=== PATIENT | male | born 1970 | race Caucasian/White ===

== ENCOUNTER 2025-03-13 10:47 | Emergency (ER) | payer OTHER, SELFPAY ==
[2025-03-13 11:03] VITALS: BP 120/72
[2025-03-13 11:41] VITALS: BMI 24.7
--- NOTE | 2025-03-13 12:34 | ED.GENMED ---
History of Present Illness
General
Chief Complaint: Rabies
Source: patient
Exam Limitations: none
Time Seen by Provider: 03/13/25 11:47
History of Present Illness
History of Present Illness:
54-year-old male presents for exposure to bat. He woke up with a bat in his house. The bat is currently being sent for testing for rabies however they are told that the result will not be returned until 10 to 15 days. No prior vaccine history for
rabies. No known direct exposure
Phy Exam
Physical Exam
Physical Exam:
Well-appearing male no acute distress alert and oriented normal gait conversing appropriately
Course
Orders/Labs/Results
Orders:
Orders
03/13/25 12:23
Rabies Immune Globulin/Pf [HyperRAB] 1,432 unit IM NOW STA
03/13/25 12:30
Rabies Vaccine (Pcec)/Pf [Rabavert Rabies Vacc W-Diluent] 2.5 unit IM .ONCE ONE
Vital Signs
Initial and Last Documented VS:
Initial Vital Signs
Temp Pulse Resp BP Pulse Ox
98.1 F 44 16 120/72 98
03/13/25 11:03 03/13/25 11:03 03/13/25 11:03 03/13/25 11:03 03/13/25 11:03
Last Documented Vital Signs
Temp Pulse Resp BP Pulse Ox
98.1 F 44 16 120/72 98
03/13/25 11:03 03/13/25 11:03 03/13/25 11:03 03/13/25 11:03 03/13/25 11:03
MDM/Problems Addressed
Differential Diagnosis Includes:
Exposure to bat unknown direct exposure. Will vaccinate against rabies after discussion was had regarding risk and benefits. He will follow-up with the infusion center for the remaining 3 vaccines.
*Pulse Oximetry
SaO2: 98
Oxygen Mode of Delivery: Room air
Patient hypoxic: no
*Critical Care Note
Total Time (30-74mins, 75-104mins- exclusive of procedures): Not Applicable
ED Attending Note
-
Portions of this chart may have been created with voice recognition software.� Occasional wrong word or��sound alike� substitutions may have occurred due to the inherent limitations of voice recognition software.
Discharge Plan
Departure
Patient Disposition: Home (Routine Discharge)
Date of Disposition: 03/13/25
Time of Disposition: 12:35
Patient with high blood pressure during this ER visit?: No
Discharge Problem:
Rabies, need for prophylactic vaccination against
Prescriptions:
New
RabAvert (PF) 2.5 unit Suspension For Reconstitution
1 ml IM . DIRECTED Qty: 3 0RF
Rx Instructions:
See Rabies Vaccine Post Exposure Prophylaxis Instruction Sheet for Dosing Instructions
Referrals:
UNKNOWN - PT DOES,NOT KNOW [Family Provider]
Stand Alone Forms: Rabies Vaccine Post Exp Dosing
Interventions
Interventions:
*Risk Screen - Suicide Last Done: 03/13/25 11:03
*Neglect/Abuse Screening Last Done: 03/13/25 11:03
Discharge Date and Time
Print Language: MACEDONIAN
[2025-03-13] MEDS: RABAVERT RABIES VACC W-DILUENT 2.5 UNIT IM (13:18)
== END 2025-03-13 13:30 | disposition home or self-care (01) ==
LOC: EMR 10:47
PROVIDERS: EMERGENCY PHYSICIAN Emergency Medicine
DX: Z20.3 Contact with and (suspected) exposure to rabies (principal); Z23 Encounter for immunization
CPT/HCPCS: 99282; 90471; 96372; 90375; 90675